=== PATIENT | male | born 1975 | race Caucasian/White ===

== ENCOUNTER → 2017-12-25 | Outpatient (CLI) | payer OTHER ==
--- NOTE | 2017-12-25 14:27 | Diagnostic Imaging Report ---
INDICATION: Pain over the left bicep. FINDINGS: Sonographic interrogation of the left arm was performed. Biceps musculature appears normal. No intramuscular hematoma or fluid collection is seen. No retraction is identified. No definite tear is seen. IMPRESSION: No sonographic abnormality is seen. If there is continued concern, MRI would be recommended for further evaluation. Dictated by: Dictated on workstation # [id number]
== END ==
LOC: RAD 11:36
PROVIDERS: ATTEND Nurse Practitioner Family
DX: M79.1 Myalgia (principal)
CPT/HCPCS: 76881